=== PATIENT | male | born 1955 | race African-American/Black ===

== ENCOUNTER 2019-11-02 09:50 | Outpatient (CLI) | payer OTHER, SELFPAY ==
--- NOTE | ~2019-11-02 | MR_ITS ---
EXAMINATION: MR lumbar spine wo con DATE: 11/02/2019 10:58 INDICATION: Lumbar spinal stenosis with neurogenic claudication. TECHNIQUE: Magnetic resonance imaging (MRI) of the lumbar spine was performed without intravenous con trast. Sequences included sagittal T2-weighted FSE, sagittal STIR FSE, sagittal T1-weighted FSE, and axial T2-weighted FSE. COMPARISON: Lumbar spine MRI 06/07/2017 FINDINGS: There is 6 degrees levocurvature of lumbar spine. There is 3 mm anterolisthesis of L3 on L4 . There are Schmorl's nodes at all levels. There is mildly decreased disc height at L1-L2, moderately decreased disc height at L2-L3, mildly decreased disc height at L3-L4 and L4-L5, and moderately decr eased disc height at L5-S1. Epidural lipomatosis is noted. There is ligamentum flavum hypertrophy at the disc levels from L1-L2 through L4-L5. The distal spinal cord signal intensity is normal. The conu s medullaris is at T12. The following disc levels are specifically discussed: L1-L2: The disc is bulging with superimposed left subarticular zone extrusion with 12 mm inferior ext ension with mass effect on the left L2 nerve root. There is severe bilateral facet joint osteoarthrit is. There is mild bilateral neural foraminal stenosis. There is mild central canal stenosis. L2-L3: The disc is bulging and has an annular fissure. There is severe bilateral facet joint osteoart hritis. There is mild bilateral neural foraminal stenosis. There is severe central canal stenosis. L3-L4: The disc is bulging and has an annular fissure. There is severe bilateral facet joint osteoart hritis. There is mild bilateral neural foraminal stenosis. There is severe central canal stenosis. L4-L5: The disc is bulging and has an annular fissure. There is severe bilateral facet joint osteoart hritis. There is mild bilateral neural foraminal stenosis. There is mild central canal stenosis. L5-S1: The disc is bulging and has an annular fissure. There is severe bilateral facet joint osteoart hritis. There is mild bilateral neural foraminal stenosis. There is mild central canal stenosis. IMPRESSION: 1. Severe lumbar spondylosis, worsened from 06/07/2017. Reviewed, dictated and finalized at location A.
== END 2019-11-02 09:51 | disposition home or self-care (01) ==
LOC: ANHIMG 09:53
DX: M48.061 Spinal stenosis, lumbar region without neurogenic claudication (principal); M47.896 Other spondylosis, lumbar region
CPT/HCPCS: 72148

== ENCOUNTER 2021-02-19 03:17 | Emergency (ER) | payer OTHER, SELFPAY ==
--- NOTE | ~2021-02-19 | CT_ITS ---
EXAMINATION: CT brain wo con, CT cervical spine wo con EXAM DATE: 02/19/2021 04:33 (accession [id number]), 02/19/2021 04:34 (accession [id number]) INDICATION: Head injury . TECHNIQUE: Spiral CT of the head was performed without contrast. Axial, coronal and sagittal images were reviewed. Spiral CT of the cervical spine was performed without contrast. Axial images were rev iewed. Coronal and sagittal reformatted images were also reviewed. The dose-length product (DLP) fo r this examination was 653.39 (accession [id number]), 681.00 (accession [id number]) mGy-cm. The exposure was tailored according to patient size, and iterative reconstruction (ASIR) was used as additional dose reduction technique. There is no prior study for comparison. FINDINGS: HEAD CT: There is no acute intraparenchymal hemorrhage. No evidence of intraparenchymal brain mass l esion. No evidence of acute infarction. There is no mass effect or midline shift. There is no obstru ctive hydrocephalus suspected. There are no extra-axial collections. There are no acute calvarial f ractures. The orbits are unremarkable. Soft tissue is unremarkable. The visualized sinuses and mas toid air cells are well aerated. CERVICAL CT: There is no evidence of acute cervical fracture. The odontoid process is intact. Pre- dens space is normal. Prevertebral soft tissue is normal. There are no soft tissue abnormalities id entified. There is no disc space widening or traumatic vertebral body subluxation suspected. There is mild to moderate lower thoracic spondylosis. A detailed level by level evaluation of spondylosis can be added as addendum if requested. IMPRESSION: 1. No acute intracranial findings or cervical fracture. Reviewed, dictated and finalized at location B. IMPRESSION: 1. No acute intracranial findings or cervical fracture.
--- NOTE | ~2021-02-19 | XR_ITS ---
EXAMINATION: XR chest 2V DATE: 02/19/2021 04:47 INDICATION: Chest pain TECHNIQUE: AP and lateral views of the chest are obtained. COMPARISON: None available FINDINGS: The lungs are free of acute opacities. There is no pleural effusion or pneumothorax. The ca rdiomediastinal silhouette is normal. There are bridging osteophytes at multiple levels in the spine, consistent with diffuse idiopathic skeletal hyperostosis (DISH). IMPRESSION: 1. No acute cardiopulmonary abnormality. Reviewed, dictated and finalized at location A.
[2021-02-19 03:34] VITALS: BP 130/45; PULSE 88; RESP 18; TEMP 36.7; O2SAT 95
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
[2021-02-19] MEDS: SODIUM CHLORIDE 0.9% IV 1,000 ML 999 ML IV CONT (03:56)
[2021-02-19 03:59] LABS: Glucose Point of Care 148 mg/dl (65-105)
[2021-02-19 04:08] LABS: Basophils Percent Auto 0.4 % (0.2-1.2); Eosinophils Absolute Auto 0.1 K/mm3 (0-0.3); Eosinophils Percent Auto 1.1 % (0-4.4); Hematocrit 50.7 % (42.0-52.0); Hemoglobin 17.7 g/dL (14.0-18.0); Immature Granulocyte Absolute 0.03 K/mm3 (0.00-0.031); Immature Granulocyte Percent A 0.3 % (0-0.5); Lymphocytes Absolute Auto 3.02 K/mm3 (0.9-3.2); Lymphocytes Percent Auto 26.5 % (18.3-44.2); Mean Corpuscular HGB Conc 34.9 g/dl (32-36); Mean Corpuscular Hemoglobin 27.7 pg (26-34); Mean Corpuscular Volume 79.3 fl (80-100); Monocytes Absolute Auto 1.1 K/mm3 (0.1-0.6); Monocytes Percent Auto 9.7 % (2.6-8.5); Neutrophils Absolute Auto 7.1 K/mm3 (1.3-6.7); Platelet Count Result 340 k/mm3 (150-375); Red Blood Count 6.39 M/mm3 (4.6-6.20); Red Cell Distribution Width 16.1 % (11.5-14.5); White Blood Count 11.4 K/mm3 (4.5-10.0)
[2021-02-19 04:17] LABS: Prothrombin Time 12.9 Seconds (11.1-14.7)
[2021-02-19 04:18] LABS: Partial Thromboplastin Time 30.1 SECONDS (22.3-36.8)
[2021-02-19 04:30] LABS: Alanine Aminotransferase 17 U/L (4-50); Albumin Level 4.1 g/dL (3.5-5.1); Alkaline Phosphatase 70 U/L (38-126); Anion Gap 13 mmol/L (8-16); Aspartate Amino Transferase 34 U/L (17-59); Bilirubin,Total 0.8 mg/dL (0.2-1.3); Blood Urea Nitrogen 20 mg/dL (9-20); Calcium 9.2 mg/dL (8.4-10.2); Carbon Dioxide 31 mmol/L (22-30); Chloride 93 mmol/L (98-107); Estimated CRCL calculation 81 ml/min; Estimated Glomerular Filt Rate > 60; Glucose 124 mg/dL (65-110); Potassium 3.5 mmol/L (3.4-5.0); Sodium 137 mmol/L (137-145)
[2021-02-19 06:36] VITALS: BP 127/68; PULSE 84; RESP 18
== END 2021-02-19 06:37 | disposition home or self-care (01) ==
PROVIDERS: Emergency Provider General Practice; PCP Family Medicine
DX: S01.81XA Laceration without foreign body of other part of head, initial encounter (principal); E11.9 Type 2 diabetes mellitus without complications; H40.9 Unspecified glaucoma; M10.9 Gout, unspecified; I10 Essential (primary) hypertension; V47.5XXA Car driver injured in collision with fixed or stationary object in traffic accident, initial encounter
CPT/HCPCS: 36415; 70450; 71046; 72125; 80053; 82948; 85025; 85610; 85730; 96361; 96365; 99284; J0131; J7030

== ENCOUNTER 2023-12-11 14:36 | Outpatient (CLI) | payer OTHER, SELFPAY ==
--- NOTE | 2023-12-11 14:50 | ECG_ITS ---
Test Date: 2023-12-11 15:24:00 Measurements Intervals [place] Rate: 71 P: 71 MD: 198 QRS: -24 QRSD: 113 T: -3 QT: 399 QTc: 435 Interpretive Statements SINUS RHYTHM WITH OCCASIONAL VENTRICULAR PREMATURE COMPLEXES WITH OCCASIONAL SUPRAVENTRICULAR PREMATURE COMPLEXES INDETERMINATE AXIS LOW QRS VOLTAGE IN PRECORDIAL LEADS [QRS DEFLECTION < 1.0 mV IN CHEST LEADS] POSSIBLE ANTERIOR MYOCARDIAL INFARCTION [30 ms Q WAVE IN V3/V4, OR R < 0.2 mV IN V4], PROBABLY OLD No previous ECG available for comparison Electronically Signed On 12-12-2023 10:15:24 CDT by Fernando Ayoub M.D.
[2023-12-11 16:06] LABS: Anion Gap 7 mmol/L (4-12); Blood Urea Nitrogen 15 mg/dL (9-20); Calcium 8.7 mg/dL (8.4-10.2); Carbon Dioxide 33 mmol/L (22-30); Chloride 95 mmol/L (98-107); Estimated Glomerular Filt Rate > 60; Glucose 100 mg/dL (65-110); Potassium 3.3 mmol/L (3.4-5.0); Sodium 135 mmol/L (137-145)
== END 2023-12-11 14:37 | disposition home or self-care (01) ==
PROVIDERS: Anesthesiology; PCP Family Medicine; Visit Provider Urology
DX: E11.9 Type 2 diabetes mellitus without complications (principal); Z01.818 Encounter for other preprocedural examination; R94.31 Abnormal electrocardiogram [ECG] [EKG]
CPT/HCPCS: 36415; 80048; 93005

== ENCOUNTER 2023-12-14 01:53 | Day surgery (SDC) | payer OTHER, SELFPAY ==
[2023-12-08 16:02] VITALS: BMI 41.5
--- NOTE | 2023-12-08 16:20 | PC.NURSE ---
Report to the Outpatient Waiting Room, entrance under the green pavilion located off [facility], at time ___0600am____ on date _12/14/23 . Planned Procedure Time: __0730am . Time changes happen often and if your time is changed the preop area will call you the afternoon before. - You and your visitor will be asked to self-screen and do not enter if you have any COVID symptoms. - A mask is optional within the hospital at this time. Patients may have clear liquids (water, carbonated beverages, clear teas, apple juice) until 3 hours (0430am) prior to surgery with a maximum of 20 ounces. - No food from midnight until time of surgery Take the following medications with a SIP of water the morning of surgery: ___Amlodipine, Duloxetine, Gabapentin. May also take Oxycodone and Inhalers as needed DO NOT STOP ANY OF YOUR OTHER PRESCRIPTION MEDICATIONS PRIOR TO SURGERY ?EXCEPT THE FOLLOWING Medications to discontinue per physician Stop your baby aspirin and vitamins/supplements [address] Lee. Date to take last dose___12/06/23 Please no make-up, nail irish, hairspray, perfume, deodorant, or body powder the day of surgery. No jewelry (including any body piercings) or valuables the day of surgery, leave them at home. Please take a shower or bath the night before, or the morning of, surgery with an antibacterial soap. Wear comfortable, loose fitting clothing. Children are encouraged to wear pajamas. - Jewelry must be removed prior to entering the operating room. Rings and piercings that are not removed may be cut off. - The hospital will not accept responsibility for valuables. - Please leave all valuables, including medications, at home the day of surgery. If you are going home after surgery, a licensed cross country truck driver must drive you home. - NO public transportation without another adult if you receive anesthesia. - We recommend that an adult stay with you for 24 hours following discharge. - We also recommend that you do not drive, make important decision, drink alcoholic beverages, or take any drugs that were not prescribed by your health care provider for at least 24 hours after your discharge time. Follow any additional instructions given to you from your surgeon. If you or anyone in your household have experienced Covid symptoms in the past week, please notify your surgeon or the nurse liaison at the phone number below for possible testing. Telephone instructions given to __patient and asked if any additional questions and then verbalized understanding. Patient advised to call surgeon office or pre surgery nurse liaison [phone] if any additional questions.
[2023-12-14] VITALS (8 sets, daily range): BP systolic 102–131; BP diastolic 60–82; PULSE 48–58; RESP 16–21; TEMP 36.2–36.3; O2SAT 97–100
--- NOTE | 2023-12-14 06:04 | WPDHPUPDATE1 ---
History and Physical Update Update Date/Time: 12/14/23 06:04 History and Physical has been reviewed, including an updated exam of the patient. There are NO changes in the patient's condition. Risks, benefits, and alternatives have been discussed and questions answered. Patient agrees to proceed with procedure.
[2023-12-14] MEDS: LACTATED RINGERS 1,000 ML 30 ML IV CONT (06:30)
[2023-12-14 06:54] LABS: Glucose Point of Care 115 mg/dl (65-105)
--- NOTE | 2023-12-14 07:06 | WPDANESEPPF ---
Anes - Initial Pre Proc Eval Procedure: Operation Date: 12/14/23 07:30 Proposed Procedures p Cystoscopy, Urethral Dilatation - Elan Lee MD Date/Time: 12/14/23 07:06 Surgeon: Elan Lee MD Pre Op Diagnosis: urethral stricture Patient Data Age: 68 Gender: M Height: 1.88 m Weight: 147 kg Allergies Allergy/AdvReac Type Severity Reaction Status Date / Time Iodinated Contrast Media Allergy Severe throat Verified 12/08/23 15:36 swelling, hives Penicillins Allergy Severe RESP Verified 12/08/23 15:35 DISTRESS Home Medications Medication Instructions Recorded Confirmed Type allopurinol 300 mg tablet 300 mg PO DAILY 12/08/23 12/08/23 History amlodipine 5 mg tablet 5 mg PO DAILY 12/08/23 12/08/23 History aspirin 81 mg chewable tablet 81 mg PO DAILY 12/08/23 12/08/23 History brimonidine 0.2 %-timolol 0.5 % 1 drp EACH EYE BID 12/08/23 12/08/23 History eye drops dorzolamide 2 % eye drops 1 drp EACH EYE BID 12/08/23 12/08/23 History duloxetine 60 mg capsule,delayed 60 mg PO DAILY 12/08/23 12/08/23 History release furosemide 40 mg tablet 40 mg PO DAILY 12/08/23 12/08/23 History gabapentin 800 mg tablet 800 mg PO BID 12/08/23 12/08/23 History ipratropium 0.5 mg-albuterol 3 mg 0.5 ml inhalation DIRECTED PRN 12/08/23 12/08/23 History (2.5 mg base)/3 mL nebulization sob soln ketorolac 0.5 % eye drops 1 drp LEFT EYE DAILY 12/08/23 12/08/23 History multivit with minerals-iron 18 1 tablet PO DAILY 12/08/23 12/08/23 History mg-folic ac 400 mcg-vit K 25 mcg tablet (Adults Multivitamin) omega-3 fatty acids-fish oil 684 1 cap PO BID 12/08/23 12/08/23 History mg-1,200 mg capsule,delayed release oxycodone-acetaminophen 10 mg-325 2 tablet PO Q4-6H PRN Pain 12/08/23 12/08/23 History mg tablet pantoprazole 40 mg tablet,delayed 40 mg PO BID 12/08/23 12/08/23 History release rosuvastatin 5 mg tablet 5 mg PO EVERY OTHER DAY 12/08/23 12/08/23 History tamsulosin 0.4 mg capsule 0.4 mg PO HS 12/08/23 12/08/23 History tirzepatide 2.5 mg/0.5 mL 2.5 mg subcut WEEKLY 12/08/23 12/08/23 History subcutaneous pen injector (Mounjaro) triamterene 37.5 1.5 tablet PO DAILY 12/08/23 12/08/23 History mg-hydrochlorothiazide 25 mg tablet Laboratory Tests 12/14/23 06:52 POC Capillary Glucose 115 H mg/dl (65-105) Patient hx anesthesia problems: none Family hx anesthesia problems: none Results Review: All pre-operative results and documents have been reviewed as part of the pre-operative evaluation. [facility] Past Medical History Medical History Diabetes mellitus Glaucoma Gout Hypertension Surgical History Surgical History H/O eye surgery H/O foot surgery Social History Social History Smoking status: Never smoker Alcohol intake: never Drinks per week: 2 Substance use: current Substance use type: marijuana and prescription drug Other substance usage details: smoke 2 cig week, chew 5 edibles a week Living arrangements: with family Spiritual care concerns: No Anes - Eval Final PreProcedure Day of Procedure 12/14/23 07:06 Patient weight: morbidly obese Heart: regular rate and rhythm Lungs: clear to auscultation Airway: Mallampati scale and special considerations (Upper caps. ) Neurological: alert and oriented Last oral intake: >/= 8 hours ASA classification: III Emergent: no Anesthetic plan: proceed Anesthesia type and monitoring: general LMA and standard monitoring Results Review: All pre-operative results and documents have been reviewed as part of the pre-operative evaluation. FAYE on CPAP, HTN, hyperlipidemia, DM (fsbs 115). Informed Consent: The patient's anesthetic plan and its attendant risks and benefits were discussed with the patient/famil
[2023-12-14] MEDS: ceFAZolin 3 GM/D5W 100 ML 100 ML IVPB (07:17)
[2023-12-14] MEDS: LIDOCAINE HCL 2% GEL UROJET 10 ML PKG MUCOUS MEM (07:36)
--- NOTE | 2023-12-14 07:50 | P.OP_ITS ---
Procedure Note - Detailed Date of Procedure 12/14/23 Pre-op Diagnosis Urethral stricture Post-op Diagnosis Same Procedure Performed Cystoscopy, urethral dilatation Surgeon Elan Lee MD Anesthesia General Findings Moderately constricting bulbous urethral stricture Description of Procedure patient is brought to the operative suite where has prepped and draped in routine sterile fashion while in dorsal lithotomy position after the uneventful induction of a general LMA anesthetic. Cystoscopy was undertaken with a 19 F rigid cystoscope to the point of the bulbous urethral stricture. I placed a 0.035 in guidewire into his bladder and dilated the stricture from 12 F to 22 F with urethral dilators. Repeat cystoscopy showed surgical absence of his prostate. Bladder was endoscopically normal foreign body or neoplasm. Bladder mucosa was normal. I placed a 18 F [place] tip catheter which I intend to leave only during his stay and PACU. Drains Yes Packing No Pathology None sent Complications No immediate complications Condition Stable
[2023-12-14 07:56] LABS: Glucose Point of Care 120 mg/dl (65-105)
[2023-12-14] MEDS: fentaNYL CITRATE INJ (*CRX) 100 MCG/2 ML VIAL 25 MCG IV PUSH ×2 (08:05→08:07)
[2023-12-14] MEDS: oxyCODONE HCL (*CRX) 5 MG TAB IR PO (09:00)
--- NOTE | 2023-12-14 10:27 | SUR.PHASEII ---
1025 MEETS ANESTHESIA DISCHARGE CRITERIA. PATIENT DRESSED & WAITING FOR A RIDE HOME.
== END 2023-12-14 10:55 | disposition home or self-care (01) ==
PROVIDERS: PCP Family Medicine; Visit Provider Urology
PROC: 0T7D8ZZ Dilation of Urethra, Via Natural or Artificial Opening Endoscopic (ICD-10-PCS; CPT 52281; principal; 2023-12-14 07:30)
DX: N35.912 Unspecified bulbous urethral stricture, male (principal); E29.1 Testicular hypofunction; N32.81 Overactive bladder; N43.3 Hydrocele, unspecified; N45.3 Epididymo-orchitis; N52.9 Male erectile dysfunction, unspecified; R31.9 Hematuria, unspecified; I10 Essential (primary) hypertension; E11.9 Type 2 diabetes mellitus without complications; G47.30 Sleep apnea, unspecified; F12.90 Cannabis use, unspecified, uncomplicated; J44.9 Chronic obstructive pulmonary disease, unspecified; E66.01 Morbid (severe) obesity due to excess calories; Z68.41 Body mass index [BMI] 40.0-44.9, adult; Z79.82 Long term (current) use of aspirin; Z79.891 Long term (current) use of opiate analgesic; Z79.51 Long term (current) use of inhaled steroids; Z79.85 Long-term (current) use of injectable non-insulin antidiabetic drugs; Z98.890 Other specified postprocedural states; Z85.46 Personal history of malignant neoplasm of prostate; Z86.79 Personal history of other diseases of the circulatory system; Z80.9 Family history of malignant neoplasm, unspecified
CPT/HCPCS: 52281; 36415; 80048; 82948; 93005; A9270; J0690; J1100; J2405; J2704; J3010; J7120